=== PATIENT | female | born 1980 | race Caucasian/White ===

== ENCOUNTER 2016-08-09 11:09 | Emergency (ER) | payer OTHER ==
[2016-08-09 11:20] VITALS: TEMP 98; BMI 38.7
[2016-08-09] MEDS ORDERED: Sodium Chloride 0.9% 1,000 ML IV STA (11:23)
--- NOTE | 2016-08-09 11:27 | ED PDOC ---
Arrival/HPI - General Time Seen by Provider: 08/09/16 11:10 Historian: Patient - History of Present Illness Narrative History of Present Illness (Text): 08/09/16 11:36 A 36 year old female, presents to the emergency room complaining of dizziness, described as room spinning,since today. Patient reports she has not taken any medications for it. She reports she currently feels dizzy. Patient reports she had similar symptoms "10 years ago". She states she has nausea, but denies any fevers, vomiting, or any other complaints at this time. PMD: [facility] Time/Duration: Prior to Arrival Symptom Onset: Sudden Symptom Course: Unchanged Activities at Onset: Rest Modifying Factors (Text): none Context: Home Associated Symptoms (Text): nausea Past Medical History - Provider Review Nursing Documentation Reviewed: Yes - Cardiac Hx Cardiac Disorders: Yes - Pulmonary Hx Respiratory Disorders: No - Neurological Hx Neurological Disorder: Yes Hx Vertigo: Yes - HEENT Hx HEENT Disorder: No - Renal Hx Renal Disorder: No - Endocrine/Metabolic Hx Endocrine Disorders: Yes Hx Hypothyroidism: Yes - Hematological/Oncological Hx Blood Disorders: No - Integumentary Hx Dermatological Disorder: No - Musculoskeletal/Rheumatological Hx Musculoskeletal Disorders: No - Gastrointestinal Hx Gastrointestinal Disorders: No - Genitourinary/Gynecological Hx Genitourinary Disorders: No - Psychiatric Hx Psychophysiologic Disorder: No Hx Substance Use: No - Surgical History Hx Section: Yes Family/Social History - Physician Review Nursing Documentation Reviewed: Yes Family/Social History: No Known Family HX Smoking Status: Never Smoked Hx Alcohol Use: No Hx Substance Use: No Allergies/Home Meds Allergies/Adverse Reactions: Allergies No Known Allergies Allergy (Verified 08/09/16 11:19) Review of Systems - Physician Review All systems were reviewed & negative as marked: Yes - Review of Systems Constitutional: absent: Fevers Gastrointestinal: Nausea. absent: Abdominal Pain, Vomiting Neurological: Dizziness Physical Exam Vital Signs Reviewed: Yes Vital Signs Temp Pulse Resp BP Pulse Ox 08/09/16 13:43 62 24 124/61 100 08/09/16 13:10 69 16 107/44 L 100 08/09/16 11:57 71 16 111/55 L 99 08/09/16 11:19 98 F 59 L 16 134/53 L 99 Temperature: Afebrile Blood Pressure: Hypotensive Pulse: Bradycardic Respiratory Rate: Normal Appearance: Positive for: Well-Appearing, Non-Toxic, Comfortable Pain Distress: None Mental Status: Positive for: Alert and Oriented X 3 - Systems Exam Head: Present: Atraumatic, Normocephalic Pupils: Present: PERRL Extroacular Muscles: Present: EOMI Conjunctiva: Present: Normal Mouth: Present: Moist Mucous Membranes Neck: Present: Normal Range of Motion Respiratory/Chest: Present: Clear to Auscultation, Good Air Exchange. No: Respiratory Distress, Accessory Muscle Use Cardiovascular: Present: Regular Rate and Rhythm, Normal S1, S2. No: Murmurs Abdomen: Present: Normal Bowel Sounds. No: Tenderness, Distention, Peritoneal Signs Rectal: Present: Other (brown stool; guaiac negative- poured wall foreman: Concetta Benson ( scribe)) Upper Extremity: Present: Normal Inspection. No: Cyanosis, Edema Lower Extremity: Present: Normal Inspection. No: Edema Neurological: Present: GCS=15, CN II-XII Intact, Speech Normal, Other ( horizontal nystagmus) Skin: Present: Warm, Dry, Normal Color. No: Rashes Psychiatric: Present: Alert, Oriented x 3, Normal Insight, Normal Concentration Medical Decision Making ED Course and Treatment: 08/09/16 11:20 Impression: 36 year old female with dizziness, describes like room spinning today. Differential Diagnosis included but are not limited to: vertigo r/o anemia, metabolic, infectious etiology. Plan: -- EKG -- Labs -- UA -- Reassess and disposition Progress Notes: EKG: Ordered, reviewed, and independently interpreted the EKG. Rate : 61 BPM Rhythm : NSR Interpretation : No ST/T changes Comparison : No previous EKG for comparison. 08/09/16 13:14 noted anemia, discussed extensively with petroleum products sales representative at bedside. pt guiac neg, brown stool. pt now reports h/o of "heavy periods". pt states h/o of anemia, but uncertain baseline. as we do not have previous h/h to compare, pt reports no pmd or blood work, requested pt be admitted to hospital for possible blood transfusion. pt refuses, and states she needs to go home to tend to her child. pt is not actively bleeding. pt refuses to be transfused or admitted to hospital. pt prefers to go home. pt encouraged to see specialist and clinic for repeat h/h. pt advised to strict return precautions. pt verbalized understanding. discussed conversation in latvian with scribe petroleum products sales representative at bedside. Leaving Against Medical Advice (AMA): The patient is choosing to leave against medical advice. I have personally explained to the patient that choosing to do so may result in permanent bodily harm or . I have discussed at great length that without further evaluation and monitoring there may be unforeseen circumstances and/or deterioration causing permanent bodily harm or as a result of their choice. The patient is alert, oriented, and shows the mental capacity to make clear decisions regarding the patients health care at this time. The patient continues to wish to leave against medical advice. In light of the patients decision to leave against medical advice, the importance of follow-up has been discussed. The patient has been advised that they should return to the emergency room immediately if they change their mind at any time, or if their condition begins to change or worsen in any way. - Lab Interpretations Lab Results: 08/09/16 11:50 08/09/16 11:50 Lab Results 08/09/16 11:50: WBC 7.7, RBC 4.17, Hgb 8.8 L, Hct 29.6 L, MCV 71.0 L, MCH 21.1 L , MCHC 29.7 L, RDW 15.8 H, Plt Count 271, MPV 9.0, Gran % 62.8, Lymph % (Auto) 27.9, [place] % (Auto) 8.5 H, Eos % (Auto) 0.5 L, Baso % (Auto) 0.3, Gran # 4.81, Lymph # 2.1, [place] # 0.7 H, Eos # 0.0, Baso # 0.02, PT 10.4, INR 0.96, APTT 26.2 , Sodium 136, Potassium 4.0, Chloride 103, Carbon Dioxide 24, Anion Gap 13, BUN 12, Creatinine 0.6, Est GFR ( Amer) > 60, Est GFR (Non-Af Amer) > 60, Random Glucose 93, Calcium 8.7, Total Bilirubin 0.5, AST 29, ALT 34, Alkaline Phosphatase 84, Total Protein 8.2, Albumin 4.0, Globulin 4.2, Albumin/Globulin Ratio 1.0 L, Urine Color Yellow, Urine Appearance Clear, Urine pH 6.0, Ur Specific [place] 1.025, Urine Protein Negative, Urine Glucose (UA) Negative, Urine Ketones Negative, Urine Blood Negative, Urine Nitrate Negative, Urine Bilirubin Negative, Urine Urobilinogen 0.2, Ur Leukocyte Esterase Negative, Urine HCG, Qual Negative I have reviewed the lab results: Yes - EKG Interpretation Interpreted by ED Physician: Yes Type: 12 lead EKG - Medication Orders Current Medication Orders: Discontinued Medications Sodium Chloride (Sodium Chloride 0.9%) 1,000 mls @ 999 mls/hr IV .Q1H1M STA Stop: 08/09/16 12:23 Last Admin: 08/09/16 12:13 Dose: 999 MLS/HR eMAR Start Stop Document 08/09/16 12:13 MMA (Rec: 08/09/16 12:14 [facility] [id number]) Intravenous Solution Start Date 08/09/16 Start Time 12:13 End Date 08/09/16 End time 13:13 Total Infusion Time 60 Meclizine HCl (Antivert) 50 mg PO STAT STA Stop: 08/09/16 11:24 Last Admin: 08/09/16 12:14 Dose: 50 MG Ondansetron HCl (Zofran Inj) 4 mg IVP STAT STA Stop: 08/09/16 11:24 Last Admin: 08/09/16 12:14 Dose: 4 MG IVP Administration Document 08/09/16 12:14 [facility] (Rec: 08/09/16 12:14 [facility] [id number]) Charges for Administration # of IVP Administrations 1 - Scribe Statement The provider has reviewed the documentation as recorded by the Indio Benson training under Yevgeniy Smith All medical record entries made by the Indio were at my direction and personally dictated by me. I have reviewed the chart and agree that the record accurately reflects my personal performance of the history, physical exam, medical decision making, and the department course for this patient. I have also personally directed, reviewed, and agree with the discharge instructions and disposition. Disposition/Present on Arrival - Present on Arrival Any Indicators Present on Arrival: No History of DVT/PE: No History of Uncontrolled Diabetes: No Urinary Catheter: No History of Decub. Ulcer: No History Surgical Site Infection Following: None - Disposition Have Diagnosis and Disposition been Completed?: Yes Diagnosis: Dizziness, Anemia Disposition: AGAINST MEDICAL ADVICE Disposition Time: 13:17 Condition: UNKNOWN Discharge Instructions (ExitCare): Anemia (ED), Dizziness (ED) Print Language: ROMANSH Additional Instructions: please follow up with clinic and specialist. return to er with worsening symptoms or concerns. you are declining admission to the hospital at this time. you are able to return at any point with any worsening symptoms or concerns. Prescriptions: Ferrous Sulfate 325 mg PO DAILY #7 tablet Referrals: PCP,PATRICK [Primary Care Provider] - Follow up with primary [facility] [Outside] - Follow up with primary [facility] [Outside] - Follow up with primary Pennie Grey MD [Staff Provider] - Follow up with primary
[2016-08-09 12:15] LABS: ADD MANUAL DIFF? NO
[2016-08-09 12:28] LABS: BASO # 0.02 K/mm3 (0.0-2.0); BASO % 0.3 % (0.0-3.0); EOS % 0.5 % (1.5-5.0); GRAN # 4.81 (1.4-6.5); GRAN % 62.8 % (50.0-68.0); HEMATOCRIT 29.6 % (36.0-48.0); LYMPH # 2.1 (1.2-3.4); LYMPH % 27.9 % (22.0-35.0); MEAN CORPUSCULAR HEMOGLOBIN 21.1 pg (25.0-35.0); MEAN CORPUSCULAR HGB CONC 29.7 g/dl (31.0-37.0); MONO # 0.7 (0.1-0.6); MONO % 8.5 % (1.0-6.0); PLATELET COUNT 271 10^3/uL (120.0-450.0); RED CELL DISTRIBUTION WIDTH 15.8 % (11.5-14.5); WHITE BLOOD COUNT 7.7 10^3/ul (4.5-11.0)
[2016-08-09 12:32] LABS: INR 0.96 (0.93-1.08); PARTIAL THROMBOPLASTIN TIME 26.2 Seconds (23.7-30.8); URINE BILIRUBIN NEGATIVE (NEGATIVE); URINE BLOOD NEGATIVE (NEGATIVE); URINE GLUCOSE (UA) NEGATIVE (NEGATIVE); URINE KETONE NEGATIVE (NEGATIVE); URINE LEUKOCYTE ESTERASE NEGATIVE Leu/uL (NEGATIVE); URINE PROTEIN NEGATIVE mg/dL (<30 mg/dL); URINE UROBILINOGEN 0.2 E.U./dL (<1 E.U./dL)
[2016-08-09 12:36] LABS: ALKALINE PHOSPHATASE 84 U/L (38-133); ALT/SGPT 34 U/L (7-56); AST/SGOT 29 U/L (15-39); BILIRUBIN,TOTAL 0.5 mg/dL (0.2-1.3); BLOOD UREA NITROGEN 12 mg/dL (7-21); CALCIUM 8.7 mg/dL (8.4-10.5); CARBON DIOXIDE 24 mmol/L (21-33); CHLORIDE 103 mmol/L (98-107); GFR AFRICAN-AMERICAN > 60; GLUCOSE,RANDOM 93 mg/dL (70-110); SODIUM 136 mmol/L (132-148); TOTAL PROTEIN 8.2 g/dL (5.8-8.3)
[2016-08-09 12:45] LABS: URINE APPEARANCE CLEAR (CLEAR); URINE COLOR YELLOW (YELLOW)
[2016-08-09 13:28] VITALS: O2SAT 100
[2016-08-09 13:46] VITALS: BP 124/61; PULSE 62; RESP 24
--- NOTE | 2016-08-10 11:09 | CARD ---
APPROVED REPORT EKG Measurement Heart [id number] <Conclusion> Normal sinus rhythm Normal ECG
== END 2016-08-09 13:43 | disposition left against medical advice (07) ==
LOC: MERGE 11:09 → ED 11:09
DX: R42 Dizziness and giddiness (principal); D64.9 Anemia, unspecified
CPT/HCPCS: 80053; 81003; 84703; 85025; 85610; 85730; 93005; 96361; 96374; 99285; J2405; J7040